=== PATIENT | male | born 1980 | race Caucasian/White ===

== ENCOUNTER 2023-06-07 18:25 | Outpatient (REF) | payer OTHER, SELFPAY ==
[2023-06-07 15:45] LABS: HCT 43.4 % (40.0-50.0); HGB 14.2 g/dL (13.5-17.5); MCH 27.7 pg (27.0-33.0); MCHC 32.7 % (32.0-36.0); MCV 85 fL (80-95); MPV 10.5 fL (8.0-11.0); Platelet Count 227 10^3/uL (130-400); RBC 5.13 10^6/uL (4.36-5.78); RDW 12.9 % (11.8-14.1); RDW-SD 39.8 fL; WBC 6.15 10^3/uL (4.4-10.8)
[2023-06-07 15:53] LABS: ESR 15 mm/hr (0-15)
[2023-06-07 16:12] LABS: ALT 51 U/L (16-63); AST 32 U/L (15-37); Alkaline Phosphatase 66 U/L (46-116); Anion Gap 7.8 mmol/L (3-11); BUN 17 mg/dL (7-18); Bilirubin, Total 0.4 mg/dL (0.2-1.0); C-Reactive Protein 1.64 mg/dL (0.0-0.3); CO2 30.2 mmol/L (21.0-32.0); CREATININE 0.8 mg/dL (0.70-1.30); Calcium 9.4 mg/dL (8.5-10.1); Chloride 103 mmol/L (98-107); Estimated GFR 114.02 (mL/min/1.73m2); Glucose 95 mg/dL (74-106); Potassium 4.1 mmol/L (3.5-5.1); Sodium 141 mmol/L (136-145); TSH (W/Ref FT4) 0.75 uIU/mL (0.36-3.74); Total Protein 7.8 g/dL (6.4-8.2)
--- OUTSIDE RECORDS SUMMARY | 2023-06-07 18:41 | XMS_ITS | CCD ---
Author Name Unknown Address [address] [place] [address] [phone] Organization Unknown Address [address] [place] [address] [phone] Care Team Providers Care Corporate Claims Examiner Name Role Phone BOB ROY MD Attending Physician [phone] Vital Signs Unknown or Not Available. Allergies Allergy Code Allergy Type Reaction Status No Known Allergies 0 No known allergies Active Procedures Unknown or Not Available. History of Immunizations Unknown or Not Available. Problems Unknown or Not Available. Results [facility] COVID SAMMIONIX - Colle ct Date/Time: 06/07/2021 11:27 Test Name Code Test Result Test Units Test Ref Rang e SOURCE= Anterior nasal N/A Tier- EXPOSURE N/A SARS COV2 RNA: 84001-0 NEGATIVE N/A REFERENCE RANGE: NEGAT Active Medications Unknown or Not Available. Medications Administered During Visit Unknown or Not Available. Encounters Encounter Diagnosis Diagnosis Code Start Date Exposure to SARS-CoV-2 [id number] Social History Smoking Status Code Start Date End Date Never smoker [id number] Patient Decision Aids Unknown or Not Available. Discharge Instructions You were admitted to [facility] on 06/07/2021 11:20 with a principal diagnosis of Contact with and (suspected) exposure to COVID-19 You had the following tests done:ANTONY COVID RHEONIX You were discharged from [facility] on 06/07/2021 11:20 Should you have any questions prior to discharge, please contact a member of your healthcare team. If you have left the hospital and have any questions, please contact your primary care physician. Chief Complaint and Reason For Visit Unknown or Not Available. Function Status Unknown or Not Available. Plan of Care Unknown or Not Available. Referral/Transition of Care Unknown or Not Available.
--- OUTSIDE RECORDS SUMMARY | 2023-06-07 18:41 | XMS_ITS | CCD ---
Author Name Unknown Address [address] [place] [address] [phone] Organization Unknown Address [address] [place] [address] [phone] Care Team Providers Care Hook And Eye Machine Operator Name Role Phone HARSHA COCHRAN MD Attending Physician [phone] HARSHA COCHRAN MD Er Physician [phone] Vital Signs Unknown or Not Available. Allergies Allergy Code Allergy Type Reaction Status No Known Allergies 0 No known allergies Active Procedures Procedure Code Procedure Type Date CULT WOUND CULTURE [id number] SNOMED CT History of Immunizations Unknown or Not Available. Problems Unknown or Not Available. Results BASIC METABOLIC PANEL (BMP) - Collect Date/Time: 06/08/2021 09:10 Test Name Code Test Result Test Units Test Ref Rang e GLUCOSE 2345-7 97 mg/dL L=70 H=116 BUN 3094-0 14 mg/dL L=6 H=25 CREATININE 2160-0 0.96 mg/dL L=0.67 H=1.17 SODIUM SERUM 2951-2 142 mmol/L L=136 H=145 POTASSIUM SERUM 2823-3 3.7 mmol/L L=3.4 H=5 .2 CHLORIDE SERUM 2075-0 106 mmol/L L=96 H=110 CARBON DIOXIDE (CO2) 2028-9 27 mmol/L L=22 H=34 ANION GAP 96056-9 9.3 mmol/L CALCIUM SERUM 72761-5 9.1 mg/dL L=8.2 H=10. 2 AGE 41 years eGFR (non-Afr.Amer.) 02748-1 87 mL/min eGFR (Afr-[place]an) 04724-6 106 mL/min CBC W/ DIFFERENTIAL - Collec t Date/Time: 06/08/2021 09:10 Test Name Code Test Result Test Units Test Ref Rang e WBC 6690-2 10.80 th/cmm L=5.00 H=10.00 NEUT % 78.7 % L=40.0 H=80.0 LYMPH % 12.8 % L=10.0 H=50.0 MONO % 22226-1 6.8 % L=2.0 H=12.0 EOS % 1.1 % L=0.0 H=8.0 BASO % 0.2 % L=0.0 H=3.0 IG % 2514-8 0.4 % L=0.0 H=1.1 NRBC % 56537-0 0.0 % L=0.0 H=0.0 NEUT abs count 751-8 8.5 th/cmm L=1.6 H=8. 4 LYMPH abs count 731-0 1.4 th/cmm L=1.5 H=4 .0 MONO abs count 742-7 0.7 th/cmm L=0.2 H=1. 0 EOS abs count 711-2 0.1 th/cmm L=0.0 H=0.5 BASO abs count 704-7 0.0 th/cmm L=0.0 H=0. 2 IG abs count 45183-3 0.0 th/cmm L=0.0 H=0.1 NRBC abs count 60088-9 0.0 mil/cmm L=0.0 H=0. 0 RBC 789-8 5.50 mil/cmm L=4.30 H=6.20 HEMOGLOBIN 718-7 15.4 gm/dL L=13.0 H=17.0 HEMATOCRIT 4544-3 48 % L=45 H=52 MCV 787-2 87 fL L=82 H=92 MCH 785-6 28.0 pg L=27.0 H=31.0 MCHC 786-4 32.3 % L=32.0 H=36.0 RDW-SD 788-0 41.4 fL L=39.0 H=49.0 PLATELET COUNT 777-3 210 th/cmm L=150 H=45 0 GRAM STAIN - Collect Date/Ti me: 06/08/2021 09:40 Test Name Code Test Result Test Units Test Ref Rang e SOURCE- Other N/A WBC s none seen N/A PREDOMINANT ORGANISM Gram pos cocci N/A Active Medications Medications Administered During Visit Unknown or Not Available. Encounters Encounter Diagnosis Diagnosis Code Start Date Cutaneous abscess of left hand [id number] 0 06/08/2021 Social History Smoking Status Code Start Date End Date Never smoker [id number] Patient Decision Aids Unknown or Not Available. Discharge Instructions You were admitted to [facility] 01 on 06/08/2021 08:26 with a principal diagnosis of Cutaneous abscess of left hand You had the following tests done:GRAM STAINBASIC METABOLIC PANEL (BMP)CBC W/ DIFFERENTIAL You were discharged from [facility] on 06/08/2021 12:09 Should you have any questions prior to discharge, please contact a member of your healthcare team. If you have left the hospital and have any questions, please contact your primary care physician. Chief Complaint and Reason For Visit Chief Complaint Date of Onset INFECTION IN HAND 06/08/2021 Function Status Unknown or Not Available. Plan of Care Unknown or Not Available. Referral/Transition of Care Unknown or Not Available.
--- OUTSIDE RECORDS SUMMARY | 2023-06-07 18:41 | XMS_ITS | Continuity of Care Document ---
Author Name Unknown Organization [facility] Address [address] [place] [address] Encounter [facility] Date(s): 01/12/23 - 01/12/[address] [address] Discharge Disposition: Home or Self Care Attending Physician: Heidi Gonzalez MD Admitting Physician: Heidi Gonzalez MD Referring Physician: Heidi Gonzalez MD Assessment and Plan Diagnostic Tests Pending * Vitamin D, 25-OH Total [facility] 01/12/23 * Topiramate, S JUAREZ 01/12/23 Results Laboratory List Name Date Automated Diff 01/12/23 CBC w/ Diff 01/12/23 Comprehensive Metabolic Panel 01/12/23 Most recent to oldest [Reference Range]: 1 WBC [5.0-10.0 x10^3/mcL] 7.3 x10^3/mcL (01/12/23 8:21 PM) RBC [4.6-6.0 x10^6/mcL] 5.5 x10^6/mcL (01/12/23 8:21 PM) Neutro Auto [40.0-75.0 %] 49.6 % (01/12/23 8:21 PM) Lymph Auto [20.0-50.0 %] 38.8 % (01/12/23 8:21 PM) [place] Auto [2.0-15.0 %] 6.7 % (01/12/23 8:21 PM) Basophil Auto [0.0-1.0 %] 0.6 % (01/12/23 8:21 PM) BUN [7-18 mg/dL] 20 mg/dL *HI* (01/12/23 8:21 PM) Glucose Level [74-106 mg/dL] 98 mg/dL (01/12/23 8:21 PM) Potassium Level [3.5-5.1 mmol/L] 3.9 mmo l/L (01/12/23 8:21 PM) MCV [80.0-96.0] 84.5 (01/12/23 8:21 PM) AST [15-37 unit/L] 16 unit/L (01/12/23 8:21 PM) ALT [16-63 unit/L] 36 unit/L (01/12/23 8:21 PM) MCHC [31.0-35.0 g/dL] 33.0 g/dL (01/12/23 8:21 PM) Sodium Level [136-145 mmol/L] 140 mmol/L (01/12/23 8:21 PM) Hct [41.0-51.0 %] 46.4 % (01/12/23 8: PM) Calcium Level [8.5-10.1 mg/dL] 9.6 mg/dL (01/12/23 8:21 PM) Albumin Level [3.4-5.0 g/dL] 4.3 g/dL (01/12/23 8:21 PM) Protein Total [6.4-8.2 g/dL] 8.1 g/dL (01/12/23 8:21 PM) MCH [26.0-32.0 pg] 27.9 pg (01/12/23 8:21 PM) Neutro Absolute 3.6 x10^3/mcL *NA* (01/12/23 8:21 PM) Bilirubin Total [0.2-1.0 mg/dL] 0.2 mg/d L (01/12/23 8:21 PM) Hgb [14.0-18.0 g/dL] 15.3 g/dL (01/12/23 8:21 PM) Alk Phos [46-146 unit/L] 65 unit/L (01/12/23 8:21 PM) Platelets [130-450 x10^3/mcL] 208 x10^3/ mcL (01/12/23 8:21 PM) CO2 [21-32 mmol/L] 26 mmol/L (01/12/23 8:21 PM) eGFR Non-AA [>=60] 95 (01/12/23 8:21 PM) eGFR AA [>=60] 95 (01/12/23 8:21 PM) Chloride Level [98-107 mmol/L] 104 mmol/ L (01/12/23 8:21 PM) RDW-CV [11.5-17.0 %] 13.2 % (01/12/23 8:21 PM) Imm Gran Auto [0.0-0.9 %] 0.3 % (01/12/23 8:21 PM) Creatinine Level [0.70-1.30 mg/dL] 1.02 mg/dL (01/12/23 8:21 PM) Eos, Auto [1.0-6.0 %] 4.0 % (01/12/23 8:21 PM) Patient Care team information Care Team Related Persons Name: ELINA CHOCO Address: Home [address] [place] [address], [id number]
== END 2023-06-07 18:26 | disposition home or self-care (01) ==
LOC: NCHCN 18:25
PROVIDERS: Visit Provider Nurse Practitioner Family
DX: R79.89 Other specified abnormal findings of blood chemistry (principal); L65.9 Nonscarring hair loss, unspecified; R19.7 Diarrhea, unspecified
CPT/HCPCS: 80053; 82306; 85027; 85652; 84443; 86140